=== PATIENT | male | born 1955 | race Caucasian/White ===

== ENCOUNTER → 2018-01-10 | Outpatient (CLI) | payer BC ==
[~2018-01-10] MED LIST: CLINDAMYCIN 600 MG/D5W RTU 600 MG/50 ML RTUPB IV PRN; LACTATED RINGERS 1000 ML IV PRN; LIDOCAINE 0.5% INJ-PF (5 MG/ML) 50 ML SDV SUBCUT PRN
[2018-01-10 10:26] VITALS: BP 110/70
--- NOTE | 2018-01-10 11:20 | RADIOLOGY REPORT (SQ) ---
EXAM DESCRIPTION: CHEST PA/LATERAL COMPLETED DATE/TIME: 01/10/2018 10:59 am REASON FOR STUDY: PRE-OP COMPARISON: 08/06/2009 EXAM PARAMETERS: NUMBER OF VIEWS: two views TECHNIQUE: Digital Frontal and Lateral radiographic views of the chest acquired. RADIATION DOSE: NA LIMITATIONS: none FINDINGS: LUNGS AND PLEURA: No opacities, masses or pneumothorax. No pleural effusion. MEDIASTINUM AND HILAR STRUCTURES: No masses or contour abnormalities. HEART AND VASCULAR STRUCTURES: Heart normal size. No evidence for failure. BONES: No acute findings. HARDWARE: None in the chest. OTHER: No other significant finding. IMPRESSION: NO SIGNIFICANT RADIOGRAPHIC FINDING IN THE CHEST. TECHNICAL DOCUMENTATION: JOB ID: [id number] [employer] by [employer]- All Rights Reserved Reading location - IP/workstation name: [email or web address]
[2018-01-10 11:52] LABS: HEMATOCRIT 40.5 % (37.9-51.0); HEMOGLOBIN 13.8 g/dL (13.5-17.0); MEAN CORPUSCULAR HEMOGLOBIN 31.3 pg (27.0-33.4); MEAN CORPUSCULAR HGB CONC 34.2 g/dL (32.0-36.0); MEAN CORPUSCULAR VOLUME 92 fl (80-97); PLATELET COUNT 263 10^3/uL (150-450); RED BLOOD COUNT 4.42 10^6/uL (4.35-5.55); RED CELL DISTRIBUTION WIDTH 13.5 % (11.5-14.0); WHITE BLOOD COUNT 7.3 10^3/uL (4.0-10.5)
[2018-01-10 12:00] LABS: APPEARANCE,URINE SLIGHTLY-CLOUDY; BILIRUBIN,URINE SMALL (NEGATIVE); GLUCOSE, URINE NEGATIVE (NEGATIVE); KETONES,URINE TRACE mg/dL (NEGATIVE); LEUKOCYTE ESTERASE,URINE NEGATIVE (NEGATIVE); NITRITE,URINE NEGATIVE (NEGATIVE); PROTEIN,URINE 30 mg/dL (NEGATIVE); URINE SPECIFIC GRAVITY 1.034
[2018-01-10 12:02] LABS: COLOR,URINE DARK YELLOW
[2018-01-10 12:25] LABS: ANION GAP 12 (5-19); BLOOD UREA NITROGEN 19 mg/dL (7-20); CALCIUM 9.7 mg/dL (8.4-10.2); CARBON DIOXIDE 28 mmol/L (22-30); CHLORIDE 103 mmol/L (98-107); GLUCOSE 96 mg/dL (75-110); POTASSIUM 4.7 mmol/L (3.6-5.0); SODIUM 143.1 mmol/L (137-145)
--- NOTE | 2018-01-10 13:26 | EKG REPORT ---
SEVERITY:- NORMAL ECG - SINUS RHYTHM : Confirmed by: Andrés Fields MD 10-Jan-2018 13:25:52
== END ==
LOC: OD 09:24 → EDSTATUS 01-24 07:30
PROVIDERS: ATTEND Orthopaedic Surgery
DX: Z01.810 Encounter for preprocedural cardiovascular examination (principal); Z01.811 Encounter for preprocedural respiratory examination; Z01.812 Encounter for preprocedural laboratory examination
CPT/HCPCS: 36415; 71046; 80048; 81001; 85027; 93005; 93010

== ENCOUNTER 2019-10-17 10:16 | Emergency (ER) | payer BC ==
[2019-10-17 11:09] LABS: ABSOLUTE BASOPHILS # (AUTO) 0.1 10^3/uL (0.0-0.2); ABSOLUTE LYMPHOCYTES (AUTO) 2.6 10^3/uL (0.5-4.7); ABSOLUTE NEUT (AUTO) 8.9 10^3/uL (1.7-8.2); BASOPHILS % (AUTO) 0.6 % (0-2); EOSINOPHILS % (AUTO) 0.3 % (0-6); HEMATOCRIT 47.4 % (37.9-51.0); HEMOGLOBIN 16.1 g/dL (13.5-17.0); LYMPHOCYTES % (AUTO) 20.7 % (13-45); MEAN CORPUSCULAR HEMOGLOBIN 30.5 pg (27.0-33.4); MEAN CORPUSCULAR HGB CONC 34.1 g/dL (32.0-36.0); MEAN CORPUSCULAR VOLUME 90 fl (80-97); MONOCYTES % (AUTO) 7.8 % (3-13); PLATELET COUNT 306 10^3/uL (150-450); RED BLOOD COUNT 5.29 10^6/uL (4.35-5.55); RED CELL DISTRIBUTION WIDTH 13.6 % (11.5-14.0); SEGMENTED NEUTROPHILS % (AUTO) 70.6 % (42-78); TOTAL CELLS COUNTED % (AUTO) 100 %; WHITE BLOOD COUNT 12.6 10^3/uL (4.0-10.5)
[2019-10-17 11:21] LABS: INTERNATIONAL RATION (INR) 0.95; PROTHROMBIN TIME 12.6 SEC (11.4-15.4)
[2019-10-17] MEDS ORDERED: ASPIRIN 81 MG TABLET, CHEWABLE PO ONE (11:21)
[2019-10-17 11:28] LABS: ALKALINE PHOSPHATASE 106 U/L (38-126); ANION GAP 9 (5-19); ASPARTATE AMINO TRANSFERASE 65 U/L (17-59); BILIRUBIN,DIRECT 0.1 mg/dL (0.0-0.4); BILIRUBIN,TOTAL 0.8 mg/dL (0.2-1.3); BLOOD UREA NITROGEN 13 mg/dL (7-20); CALCIUM 10.2 mg/dL (8.4-10.2); CARBON DIOXIDE 26 mmol/L (22-30); CHLORIDE 102 mmol/L (98-107); CREATINE KINASE 445 U/L (55-170); GLUCOSE 132 mg/dL (75-110); POTASSIUM 3.7 mmol/L (3.6-5.0); TOTAL PROTEIN 8.2 g/dL (6.3-8.2)
[2019-10-17] MEDS ORDERED: NORMAL SALINE 1000 ML 500 ML IV ONE (11:30)
[2019-10-17] MEDS ORDERED: NITROGLYCERIN 0.4 MG/TAB 25 TAB/BOTTLE SL PRN (11:33)
--- NOTE | 2019-10-17 11:50 | RADIOLOGY REPORT (SQ) ---
EXAM DESCRIPTION: CHEST 2 VIEWS IMAGES COMPLETED DATE/TIME: 10/17/2019 11:38 am REASON FOR STUDY: CP COMPARISON: 08/06/2009 EXAM PARAMETERS: NUMBER OF VIEWS: two views TECHNIQUE: Digital Frontal and Lateral radiographic views of the chest acquired. RADIATION DOSE: NA LIMITATIONS: none FINDINGS: LUNGS AND PLEURA: No opacities, masses or pneumothorax. No pleural effusion. MEDIASTINUM AND HILAR STRUCTURES: No masses or contour abnormalities. HEART AND VASCULAR STRUCTURES: Heart normal size. No evidence for failure. BONES: No acute findings. HARDWARE: None in the chest. OTHER: No other significant finding. IMPRESSION: NO ACUTE RADIOGRAPHIC FINDING IN THE CHEST. TECHNICAL DOCUMENTATION: JOB ID: [id number] 2010 [employer]- All Rights Reserved Reading location - IP/workstation name: [email or web address]
[2019-10-17] MEDS ORDERED: NITROGLYCERIN/D5W 50 MG/250 ML RTUINJ IV PRN (13:02)
[2019-10-17] MEDS ORDERED: HEPARIN SOD (PORCINE) 1,000 UNIT/ML 10 ML VIAL IV ONE (13:07)
[2019-10-17] MEDS ORDERED: HEPARIN SODIUM,PORCINE/D5W 25,000 UNIT/250 ML RTUINJ IV PRN (13:07)
--- NOTE | 2019-10-17 15:38 | ER Document Report ---
Entered by TRACI ISRAEL SCRIBE 10/17/19 1133 Acting as scribe for:PRASHANT ARGUELLES DO ED General - General Chief Complaint: Shoulder Pain Stated Complaint: SHOULDER PAIN, CHEST PAIN Primary Care Provider: KENROY ROWE PA-C [Primary Care Provider] - Follow up as needed Mode of Arrival: Ambulatory Information source: Patient Notes: This 64-year-old male patient presents to the emergency department today with complaints of left-sided chest pain that radiates into his left shoulder. Patient states the pain began 3 days ago after mowing his grass with a push mower which is an activity he normally does. Patient states it was "very sporadic" when the pain initially began but around 7 PM last night the pain became constant. Patient states he took Aleve and Tylenol last night which allowed him to get some sleep. Patient denies a history of coronary artery disease but he is a smoker. Also has a history of high cholesterol. Denies high blood pressure / diabetes. TRAVEL OUTSIDE OF THE [place] IN LAST 30 DAYS: No - Related Data Allergies/Adverse Reactions: Penicillins Adverse Reaction (Verified 10/17/19 11:04) Nausea Home Medications: omeprazole. pravastitin. nexium Past Medical History - General Information source: Patient - Social History Smoking Status: Current Every Day Smoker Cigarette use (# per day): Yes Frequency of alcohol use: None Drug Abuse: None Lives with: Spouse/Significant other Family History: Reviewed & Not Pertinent Patient has homicidal ideation: No - Past Medical History Cardiac Medical History: Reports: Hx Hypercholesterolemia Renal/ Medical History: Reports: Hx Kidney Stones GI Medical History: Reports: Hx Gastroesophageal Reflux Disease Past Surgical History: Reports: Hx Orthopedic Surgery - Immunizations Hx Diphtheria, Pertussis, Tetanus Vaccination: Yes Review of Systems - Review of Systems Constitutional: No symptoms reported EENT: No symptoms reported Cardiovascular: See HPI, Chest pain Respiratory: denies: Short of breath Gastrointestinal: No symptoms reported Genitourinary: No symptoms reported Male Genitourinary: No symptoms reported Musculoskeletal: See HPI, Joint pain - left shoulder Skin: No symptoms reported Hematologic/Lymphatic: No symptoms reported Neurological/Psychological: No symptoms reported -: Yes All other systems reviewed and negative Physical Exam - Vital signs Vitals: Temp Pulse Resp BP Pulse Ox 98.9 F 98 16 148/96 H 97 10/17/19 10:27 06/04/20 10:27 10/17/19 10:27 10/17/19 10:27 10/17/19 10:27 Interpretation: Hypertensive - General General appearance: Appears well, Alert Notes: appears uncomfortable - HEENT Head: Normocephalic, Atraumatic Eyes: Normal Pupils: PERRL - Respiratory Respiratory status: No respiratory distress Chest status: Nontender Breath sounds: Normal Chest palpation: Normal - Cardiovascular Rhythm: Regular Heart sounds: Normal auscultation Murmur: No - Abdominal Inspection: Normal Distension: No distension Bowel sounds: Normal Tenderness: Nontender Organomegaly: No organomegaly - Back Back: Normal, Nontender - Extremities General upper extremity: Normal inspection, Nontender, Normal color, Normal ROM, Normal temperature General lower extremity: Normal inspection, Nontender, Normal color, Normal ROM, Normal temperature, Normal weight bearing. No: Alcon's sign - Neurological Neuro grossly intact: Yes Cognition: Normal Orientation: AAOx4 Zohra Coma Scale Eye Opening: Spontaneous Zohra Coma Scale Verbal: Oriented Zohra Coma Scale Motor: Obeys Commands Zohra Coma Scale Total: 15 Speech: Normal Motor strength normal: LUE, RUE, LLE, RLE Sensory: Normal - Psychological Associated symptoms: Normal affect, Normal mood - Skin Skin Temperature: Warm Skin Moisture: Dry Skin Color: Normal Course - Re-evaluation Re-evalutation: 10/17/19 12:48 Patient is a 64-year-old male with nonreproducible left chest and shoulder pain. Elevated troponin at 1.85 and ongoing chest pain. Patient will be transferred to another facility for unstable angina due to lack of therapeutic cardiac catheterization at this facility. Aspirin has been given. Patient states not much relief with nitroglycerin sublingual. Heparin and nitroglycerin IV will be initiated. Initial EKG with some elevation in II but otherwise no impressive reciprocal changes. Not convincing for STEMI. Spoke with patient in the room and over the phone. Would prefer to go to [facility] for a tertiary care facility. Will start making phone calls to transfer patient to [facility]. Transfer center contacted. 10/17/19 12:59 Call placed to the [facility] STEMI line. Third EKG has just been repeated. It is low voltage and has concern for ST elevation in leads II, II, and AVF with reciprocal changes in lateral leads. Spoke with ER physician at [facility] who agrees with starting herparin and nitro. Requests to have EKGs sent to STEMI line and will call back when images go through. 10/17/19 13:[address] Chandler, hospitalist at [facility] who asks to advise after labor relations analyst made a decision on whether or not this patient met STEMI criteria. 10/17/19 13:35 Call placed back to [facility] emergency department. Per nursing, Dr. Malin from the emergency department spoke with interventional cardiology. Cardiology says they would not consider this a STEMI at this time. Would not activate [employer]. 10/17/19 13:40 Dr. Chandler, hospitalist at [facility], accepts patient for transfer. 10/17/19 15:00 Bed assignment given. 10/17/19 15:35 Transport is here for patient. Chest pain controlled right now with nitrogl ycerin drip. Patient is stable for transfer to [facility] for further evaluation by cardiology due to lack of therapeutic catheterization at this facility. He understands the risks and benefits and is agreeable to transfer. - Vital Signs Vital signs: Temp Pulse Resp BP Pulse Ox 98.9 F 98 17 180/98 H 100 10/17/19 10:56 10/17/19 10:27 10/17/19 15:01 10/17/19 15:01 10/17/19 15:01 - Laboratory Result Diagrams: 10/17/19 10:51 10/17/19 10:51 Laboratory results interpreted by me: 10/17/19 10/17/19 10/17/19 10:51 10:51 10:51 WBC 12.6 H Absolute Neuts (auto) 8.9 H Sodium 136.8 L Glucose 132 H AST 65 H Creatine Kinase 445 H CK-MB (CK-2) 36.40 H - Diagnostic Test Radiology reviewed: Reports reviewed - NAD - EKG Interpretation by Me Additional EKG results interpreted by me: 10/17/19 10:24 Sinus rhythm at 95. ST elevation in III with no reciprocal changes except for T wave inversion in lateral leads. Abnormal compared to old EKG. 12:01 Second EKG performed showing sinus rhythm at [address] changes. T wave inversion in lateral leads/ 12:51 third EKG performed showing questionable ST elevation in III and possibly 2 and aVF with reciprocal changes in V5 and V6 Critical Care Note - Critical Care Note Total time excluding time spent on procedures (mins): 45 - Evaluation and management of chest pain with multiple re-evaluations, consult with specialist, coordination of transfer, counseling of patient and family Discharge - Discharge Clinical Impression: Unstable angina Condition: Stable Disposition: [facility] Referrals: KENROY ROWE PA-C [Primary Care Provider] - Follow up as needed I personally performed the services described in the documentation, reviewed and edited the documentation which was dictated to the scribe in my presence, and it accurately records my words and actions.
[2019-10-17 15:58] VITALS: BP 171/105
[2019-10-17 16:18] LABS: APPEARANCE,URINE CLEAR; BILIRUBIN,URINE NEGATIVE (NEGATIVE); COLOR,URINE YELLOW; GLUCOSE, URINE NEGATIVE (NEGATIVE); KETONES,URINE 80 mg/dL (NEGATIVE); LEUKOCYTE ESTERASE,URINE NEGATIVE (NEGATIVE); NITRITE,URINE NEGATIVE (NEGATIVE); PROTEIN,URINE 100 mg/dL (NEGATIVE); URINE SPECIFIC GRAVITY 1.024; UROBILINOGEN,URINE NEGATIVE mg/dL (<2.0)
--- NOTE | 2019-10-18 12:44 | EKG REPORT ---
SEVERITY:- ABNORMAL ECG - SINUS RHYTHM PROBABLE LEFT ATRIAL ABNORMALITY LVH WITH SECONDARY REPOLARIZATION ABNORMALITY BORDERLINE ST ELEVATION, INFERIOR LEADS : Confirmed by: Renato Roque 18-Oct-2019 12:44:06
--- NOTE | 2019-10-18 12:44 | EKG REPORT ---
SEVERITY:- ABNORMAL ECG - SINUS RHYTHM LEFT AXIS DEVIATION LVH WITH SECONDARY REPOLARIZATION ABNORMALITY BORDERLINE PROLONGED QT INTERVAL : Confirmed by: Renato Roque 18-Oct-2019 12:44:13
--- NOTE | 2019-10-18 12:45 | EKG REPORT ---
SEVERITY:- ABNORMAL ECG - SINUS RHYTHM PROBABLE LEFT ATRIAL ABNORMALITY LEFT AXIS DEVIATION LVH WITH SECONDARY REPOLARIZATION ABNORMALITY ANTERIOR Q WAVES, POSSIBLY DUE TO LVH ST DEPRESSION, CONSIDER ISCHEMIA, ANT-LAT LDS BORDERLINE PROLONGED QT INTERVAL : Confirmed by: Renato Roque 18-Oct-2019 12:44:36
== END 2019-10-17 15:40 | disposition short-term general hospital (02) ==
LOC: ER 10:16
DX: I20.0 Unstable angina (principal); M25.512 Pain in left shoulder; R07.9 Chest pain, unspecified; E78.00 Pure hypercholesterolemia, unspecified; F17.210 Nicotine dependence, cigarettes, uncomplicated; Z88.0 Allergy status to penicillin; Z87.442 Personal history of urinary calculi
CPT/HCPCS: 93005; 96376; 99291; 96361; 96365; 96368; 36415; 82553; 82550; 85025; 85610; 85730; 80053; 81001; 84484; 71046; 93010; J1644 ×2; J3490; J7030